=== PATIENT | male | born 1975 | race African-American/Black ===

== ENCOUNTER 2023-07-03 04:17 | Day surgery (SDC) | payer OTHER ==
[2023-06-29 10:20] VITALS: BMI 30.5
[2023-07-03] MEDS ORDERED: ceFAZolin SODIUM 1 GM VIAL ONE (06:08)
[2023-07-03 06:35] VITALS: RESP 18; TEMP 97.8
[2023-07-03 07:12] VITALS: BP 176/119; PULSE 76
[2023-07-03] MEDS ORDERED: cefOXitin SODIUM 2 GM VIAL (RESTRICTED TO ID) IVPB ONE (07:24)
[2023-07-03] MEDS ORDERED: BUPIVACAINE HCL/PF 0.25% (2.5MG/ML) 10 ML VIAL ONE (07:24)
[2023-07-03] MEDS ORDERED: CEFAZOLIN SODIUM 2 GM in DEXTROSE 5%-WATER 100 ML IVPB ONE (07:30)
== END 2023-07-03 07:39 | disposition home or self-care (01) ==
LOC: JASU-SURG 04:17
PROVIDERS: ATTEND Surgery
DX: Z53.8 Procedure and treatment not carried out for other reasons (principal)
CPT/HCPCS: 82962; 86850; 86900; 86901

== ENCOUNTER 2023-07-06 04:15 | Day surgery (SDC) | payer OTHER ==
[2023-07-06] MEDS ORDERED: CEFAZOLIN SODIUM 2 GM in DEXTROSE 5%-WATER 100 ML IVPB ONE (07:00)
[2023-07-06] MEDS ORDERED: BUPIVACAINE HCL/PF 0.25% (2.5MG/ML) 10 ML VIAL ONE ×2 (07:15→09:33)
[2023-07-06] MEDS ORDERED: ROCURONIUM BROMIDE 50 MG/5 ML SYRINGE ONE ×2 (09:52→16:16)
[2023-07-06] MEDS ORDERED: FENTANYL CITRATE/PF 50 MCG/ML VIAL ONE ×7 (09:52→17:14)
[2023-07-06] MEDS ORDERED: SUCCINYLCHOLINE CHLORIDE 200 MG/10 ML SYRINGE ONE ×2 (09:53→16:04)
[2023-07-06] MEDS ORDERED: PROPOFOL 20 ML ONE ×3 (09:53→16:05)
[2023-07-06] MEDS ORDERED: MIDAZOLAM HCL 2 MG/2 ML SINGLE DOSE VIAL ONE (09:53)
[2023-07-06] MEDS ORDERED: ACETAMINOPHEN INJECTION 100 ML IVPB ONE (10:10)
[2023-07-06] MEDS: CLINDAMYCIN 900 MG PREMIX BAG IVPB ONE (13:00)
[2023-07-06] MEDS: BUPIVACAINE HCL/PF 0.25% (2.5MG/ML) 10 ML VIAL IJ ONE (13:12)
[2023-07-06] MEDS ORDERED: KETOROLAC TROMETHAMINE 30 MG/1 ML VIAL ONE (13:13)
[2023-07-06] MEDS ORDERED: ONDANSETRON 4 MG/2 ML VIAL ONE ×2 (13:13→20:35)
[2023-07-06] MEDS ORDERED: DEXAMETHASONE SOD PHOSPHATE 4 MG/1 ML VIAL ONE (13:13)
[2023-07-06] MEDS ORDERED: CLINDAMYCIN 600MG PREMIX IVPB 1,200 MG/100 ML BAG IVPB ONE (13:13)
[2023-07-06] MEDS ORDERED: HYDROmorphone HCl 2 MG/ML VIAL ONE (13:19)
[2023-07-06] MEDS ORDERED: SUGAMMADEX SODIUM 200 MG/2 ML VIAL ONE (16:17)
[2023-07-06] MEDS ORDERED: morphine SULFATE 4 MG/ML VIAL IVPUSH PRN (17:42)
[2023-07-06] MEDS ORDERED: oxyCODONE HCL 5 MG TABLET PO PRN (17:42)
[2023-07-06] MEDS ORDERED: [UNRECOGNIZED DRUG - OTHER] SQ SCH (17:45)
[2023-07-06] MEDS ORDERED: TIRZEPATIDE 5 MG/0.5 ML SQ SCH (17:45)
[2023-07-06] MEDS: LACTATED RINGERS SOLUTION 1,000 ML IV SCH (20:00)
[2023-07-06] MEDS: ONDANSETRON 4 MG/2 ML VIAL IVPUSH PRN (20:40)
[2023-07-06 21:18] VITALS: PULSE 84
[2023-07-06] MEDS: DOCUSATE SODIUM 100 MG CAPSULE (FP) PO SCH (22:06)
[2023-07-06] MEDS: HEPARIN NA (PORCINE) 5,000 UNITS/ML 1ML VIAL SQ SCH (22:06)
[2023-07-06] MEDS: INSULIN ASPART SLIDING SCALE (NOVOLOG) 1 VIAL SQ SCH (22:07)
[2023-07-06 22:19] VITALS: BP 160/100; RESP 20; TEMP 98.2; BMI 30.6
[2023-07-07] MEDS ORDERED: LOSARTAN POTASSIUM 50 MG TABLET PO SCH (10:00)
[2023-07-07] MEDS ORDERED: INSULIN (LEVEMIR) 100 UNITS/ML UNITS SQ SCH (10:00)
== END 2023-07-06 23:36 | disposition home or self-care (01) ==
LOC: JASU-SURG 04:15 → JASUSAT 04:15 → J8W 21:16 → JASUSAT 23:36
PROVIDERS: ATTEND Surgery
PROC: 8E0W4CZ Robotic Assisted Procedure of Trunk Region, Percutaneous Endoscopic Approach (ICD-10-PCS; 2023-07-06)
PROC: 0WUF4JZ Supplement Abdominal Wall with Synthetic Substitute, Percutaneous Endoscopic Approach (ICD-10-PCS; principal; 2023-07-06 08:00)
DX: K42.9 Umbilical hernia without obstruction or gangrene (principal)
CPT/HCPCS: 82962; 86850; 86900; 86901; 94760; C1781; J0131